=== PATIENT | female | born 1975 | race American Indian/Alaskan Native ===

== ENCOUNTER 2019-03-01 09:04 | Emergency (ER) | payer MEDICAID ==
[2019-03-01 09:57] LABS: Basophils % (Auto) 0.7 % (0.0-1.8); Eosinophils # (Auto) 0.1 K/mm3 (0.0-0.4); Eosinophils % (Auto) 1.6 % (0.0-4.3); Hematocrit 43.7 % (30.3-42.9); Lymphocytes # (Auto) 2.3 K/mm3 (1.2-5.4); Lymphocytes % (Auto) 35.4 % (13.4-35.0); Mean Corpuscular HGB Conc 34 % (30-34); Mean Corpuscular Volume 104 fl (79-97); Monocytes # (Auto) 0.5 K/mm3 (0.0-0.8); Monocytes % (Auto) 8.2 % (0.0-7.3); Platelet Count 193 K/mm3 (140-440); Red Blood Count 4.21 M/mm3 (3.65-5.03); Red Cell Distribution Width 14.9 % (13.2-15.2)
[2019-03-01 10:05] LABS: Bacteria,Urine 4+ /HPF (Negative); Bilirubin,Urine NEG (Negative); Blood,Urine NEG (Negative); Color,Urine Yellow (Yellow); Protein,Urine <15 mg/dL mg/dL (Negative); Urobilinogen,Urine < 2.0 mg/dL (<2.0)
[2019-03-01 10:17] LABS: Alanine Aminotransferase 42 units/L (7-56); Albumin 4.2 g/dL (3.9-5); BUN/Creatinine Ratio 4; Blood Urea Nitrogen 3 mg/dL (7-17); Calcium 9.3 mg/dL (8.4-10.2); Hemolysis Index 11
[2019-03-01 10:18] LABS: HCG Qualitative,Urine Negative (Negative)
[2019-03-01] MEDS ORDERED: DILAUDID IV ONE (10:19)
[2019-03-01] MEDS ORDERED: NACL 0.9% 500 ML 500 ML IV ONE (10:19)
[2019-03-01] MEDS ORDERED: ZOFRAN IV ONE (10:19)
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
[2019-03-01] MEDS ORDERED: MAGNESIUM SULFATE 2GM/50ML 2 GM/50 ML BAG IV ONE (11:07)
[2019-03-01] MEDS ORDERED: MORPHINE IV ONE (11:14)
--- NOTE | 2019-03-01 12:46 | Cat Scan Report ---
CT ABDOMEN PELVIS WITH CONTRAST: HISTORY: Abdominal pain and nausea, small bowel obstruction versus constipation. COMPARISON: none. TECHNIQUE: Helical CT in 1.25mm intervals following IV contrast. Sagittal and coronal reconstructions. FINDINGS: Lung bases: Normal heart size. A small to medium layering right pleural effusion is identified measuring 4 cm in thickness. Liver: There is moderate hepatomegaly with diffuse fatty infiltration. No focal liver mass or surface nodularity. Biliary system: Normal. Pancreas: Normal. Spleen: Borderline to mild splenomegaly measuring 13.5 cm. Kidneys/ureters/bladder: Normal. Adrenal glands: A 1 cm low density nodule is identified in the medial limb of the left adrenal gland. This probably represents a small adrenal adenoma. The right adrenal gland is normal. Aorta: Normal. Intestines: No evidence for bowel obstruction or focal inflammation. No constipation is appreciated. Appendix: Normal. Pelvic viscera: The uterus is unremarkable. Bilateral ovarian cysts are identified. There are 2 cysts in the right ovary measuring up to 2 cm. 2 cysts in the left ovary measure 4 cm and 2 cm. Ascites: None. Adenopathy: None. Musculoskeletal: Normal. IMPRESSION: Moderate hepatomegaly with fatty infiltration. Borderline splenomegaly. Mild to moderate right pleural effusion. Bilateral ovarian cysts as described. No evidence for bowel obstruction or constipation.
[2019-03-01] MEDS ORDERED: FLEET MINERAL OIL PR ONE (12:52)
[2019-03-01] MEDS ORDERED: TORADOL IV ONE (12:52)
--- NOTE | 2019-03-01 14:42 | Ultrasound Report ---
ULTRASOUND PELVIS DUPLEX DOPPLER COMPLETE ULTRASOUND TRANSVAGINAL HISTORY: Pelvic pain. COMPARISON: CT abdomen pelvis with contrast performed the same day. TECHNIQUE: Transabdominal and transvaginal ultrasound with color and spectral doppler interrogation. FINDINGS: Uterus: Anteverted. 6.4 x 2.6 x 4.0 cm. No evidence for uterine mass. Normal cervix. Endometrium: Normal. 5.0 mm in thickness. Right ovary: 2.8 x 2.5 x 1.4 cm. There are 2 simple cysts in the right adnexa measuring 1.0 cm and 1.5 cm. Left ovary: 3.8 x 2.4 x 2.7 cm. There are 3 cystic structures in the left adnexa measuring 1.0 cm, 1.6 cm and 2.1 cm. Trace free pelvic fluid is identified. Spectral Doppler waveforms demonstrate arterial flow to both ovaries. IMPRESSION: Bilateral ovarian cysts as described. Trace free pelvic fluid.
[2019-03-01 15:46] VITALS: BP 126/70
== END 2019-03-01 15:46 | disposition home or self-care (01) ==
LOC: ED 09:04
DX: R10.30 Lower abdominal pain, unspecified (principal); K62.89 Other specified diseases of anus and rectum; I11.0 Hypertensive heart disease with heart failure; I50.9 Heart failure, unspecified; E11.9 Type 2 diabetes mellitus without complications; J44.9 Chronic obstructive pulmonary disease, unspecified; F17.200 Nicotine dependence, unspecified, uncomplicated; Z79.4 Long term (current) use of insulin; Z79.899 Other long term (current) drug therapy
CPT/HCPCS: 36415; 74177; 76830; 80053; 81001; 81025; 82550; 83735; 85025; 87076; 87086; 87186; 93005; 93010; 93975; 96365; 96375; 99284; J1170; J1885; J2270; J2405; J3475; J7040; Q9967; 96361

== ENCOUNTER 2021-02-07 14:04 | Emergency (ER) | payer MEDICAID ==
[2021-02-07 14:28] LABS: Bilirubin,Urine NEG (Negative); Blood,Urine NEG (Negative); Color,Urine Yellow (Yellow); Protein,Urine <15 mg/dL mg/dL (Negative); RBC,Urine < 1.0 /HPF (0.0-6.0); Urobilinogen,Urine < 2.0 mg/dL (<2.0)
[2021-02-07 14:40] LABS: Amphetamine Screen,Urine Negative; Benzodiazepines Screen,Urine Negative; Cannabinoid Screen,Urine Negative; Cocaine Screen,Urine Negative; Methadone Screen,Urine Negative; Opiate Screen,Urine Negative
[2021-02-07] MEDS ORDERED: SODIUM CHLORIDE 0.9% 1000 ML 1,000 ML IV ONE (14:52)
--- NOTE | 2021-02-07 15:39 | XRay Report ---
CHEST 1 VIEW INDICATION: AMS. COMPARISON: 05/07/2017 FINDINGS: Support devices: None. Heart: Within normal limits. Lungs/Pleura: No acute air space or interstitial disease. Trace right pleural effusion is identified. No pneumothorax. Additional findings: None. IMPRESSION: Trace right pleural effusion. Signer Name: Immanuel Stringer Jr, MD Signed: 02/07/2021 3:34 PM Workstation Name: [id number]
--- NOTE | 2021-02-07 15:54 | Emergency Department Report ---
HPI - General Chief Complaint: Altered Mental Status Time Seen by Provider: 02/07/21 14:13 - HPI HPI: 45-year-old female brought in by EMS after her called 911 saying that she has altered mental status. According to the EMS report, the patient ap parently was discharged from [facility] yesterday after being admitted for alcohol withdrawal. Apparently her last drink was January 15. After going home at some point the patient apparently became confused to the point where her called 911. On initial assessment of the patient, she is noted to be in distress, crying hysterically. Her heart rate is in the 120s although she is very agitated. She has normal oxygen saturation and blood pressure. Upon further questioning she is oriented x3 but is unable to give details of the HPI, saying "I do not know what happened to me" over and over. She denies any recent alcohol or drug ingestion/consumption. Further details of the HPI are limited due to her clinical condition. ED Past Medical Hx - Past Medical History Previous Medical History?: Yes Hx Hypertension: Yes Hx Congestive Heart Failure: Yes Hx Diabetes: Yes Hx Seizures: Yes Hx Asthma: Yes Hx COPD: Yes - Surgical History Additional Surgical History: exlap - Social History Smoking Status: Unknown if ever smoked Substance Use Type: Alcohol - Medications Home Medications: Home Medications Medication Instructions Recorded Confirmed Last Taken Type Gabapentin 300 mg PO TID 05/07/17 03/01/19 Unknown History Valacyclovir HCl [Valtrex] 1 tab PO QDAY 05/07/17 03/01/19 Unknown History buPROPion XL [Wellbutrin XL] 150 mg PO QAM 05/07/17 03/01/19 Unknown History Budesonide [Pulmicort Respules] 0.5 mg IH Q12HRT #30 day 05/11/17 03/01/19 Unknown Rx ALBUTEROL NEB's [Proventil 0.083% 2.5 mg IH Q6H PRN 03/01/19 03/01/19 Unknown History NEBS] Acetaminophen [Non-Aspirin Extra 500 mg PO Q6HR PRN #30 tablet 03/01/19 Unknown Rx Strength] FLUoxetine HCL [PROzac] 40 mg PO QDAY 03/01/19 03/01/19 Unknown History FLUoxetine [PROzac] 20 mg PO QDAY 03/01/19 03/01/19 Unknown History Hydrocortisone [Anusol-Hc 2.5% TOP 30 gm RC QHS PRN #5 cream..g. 03/01/19 Unknown Rx CREAM] Ibuprofen [Motrin] 600 mg PO Q8H PRN #30 tablet 03/01/19 Unknown Rx Insulin Glargine,Hum.rec.anlog 30 units SUB-Q HS 03/01/19 03/01/19 Unknown History [Lantus Solostar] Magnesium Oxide [Magnesium] 400 mg PO BID #20 capsule 03/01/19 Unknown Rx Metformin HCl [metFORMIN] 1,000 mg PO BIDWM 03/01/19 03/01/19 Unknown History Nitrofurantoin Casey/M-Cryst 100 mg PO Q12HR #14 capsule 03/01/19 Unknown Rx [Macrobid CAP] Ondansetron [Zofran Odt] 4 mg PO Q8HR PRN #20 tab.rapdis 03/01/19 Unknown Rx Quetiapine Fumarate [SEROquel] 800 mg PO HS 03/01/19 03/01/19 Unknown History Travoprost [Travatan Z] 1 drop OU QPM 03/01/19 03/01/19 Unknown History Zinc/Xylo/Neosp/Vit A&D [Butt 50 applic TP BID PRN #1 jar 03/01/19 Unknown Rx Paste/Lidocaine] buPROPion SR [Wellbutrin Sr] 150 mg PO BID 03/01/19 03/01/19 Unknown History clonazePAM [KlonoPIN] 2 mg PO BID PRN 03/01/19 03/01/19 Unknown History traZODone [Desyrel] 1 - 2 tab PO QHS PRN 03/01/19 03/01/19 Unknown History ED Review of Systems ROS: Stated complaint: AMS Other details as noted in HPI Comment: Unobtainable due to pts medical conditions Physical Exam - Physical Exam Vital Signs: Vital Signs 02/07/21 14:31 Temperature 98.8 F Pulse Rate 114 H Respiratory 20 Rate Blood Pressure 138/76 [Right] O2 Sat by Pulse 98 Oximetry Physical Exam: GENERAL: Well developed. Well nourished. Crying hysterically. HEENT: Normocephalic. No obvious contusions, abrasions, lacerations, or other signs of trauma. Slightly dry mucous membranes EYES: Extraocular movements are intact. Pupils are equal round and reactive to light bilaterally NECK: Supple. Trachea is midline. LUNGS: Nonlabored breathing. Lungs are clear to auscultation bilaterally. There is equal chest rise bilaterally. HEART/CARDIOVASCULAR: Tachycardia. Normal rhythm. No murmurs or rubs. ABDOMEN: Abdomen is soft and nondistended. Normal bowel sounds. No significant tenderness, guarding or rebound. SKIN: Skin is warm and dry NEURO: Patient is awake, alert, and oriented. It is difficult to get her to cooperate with the exam, although she has no facial asymmetry. Her cranial nerves are intact. She is moving all 4 extremities with normal strength. She has normal sensation. Mild tremor of bilateral fingers. MUSCULOSKELETAL: Normal ROM throughout. There are no tenderness or deformity. ED Course Vital Signs 02/07/21 14:31 Temperature 98.8 F Pulse Rate 114 H Respiratory 20 Rate Blood Pressure 138/76 [Right] O2 Sat by Pulse 98 Oximetry ED Medical Decision Making - Lab Data Result diagrams: 02/07/21 15:28 02/07/21 15:28 Laboratory Results - last 24 hr 02/07/21 02/07/21 02/07/21 14:14 14:14 15:28 WBC 7.3 RBC 2.70 L Hgb 9.7 L Hct 29.0 L MCV 107 H MCH 36 H MCHC 34 RDW 18.1 H Plt Count 171 Lymph % (Auto) 8.5 L Casey % (Auto) 4.9 Eos % (Auto) 0.0 Baso % (Auto) 0.2 Lymph # (Auto) 0.6 L Casey # (Auto) 0.4 Eos # (Auto) 0.0 Baso # (Auto) 0.0 Seg Neutrophils % 86.4 H Seg Neutrophils # 6.3 Sodium Potassium Chloride Carbon Dioxide Anion Gap BUN Creatinine Estimated GFR BUN/Creatinine Ratio Glucose Calcium Magnesium Total Bilirubin Direct Bilirubin Indirect Bilirubin AST ALT Alkaline Phosphatase Ammonia Troponin T NT-Pro-B Natriuret Pep Total Protein Albumin Albumin/Globulin Ratio TSH HCG, Qual Urine Color Yellow Urine Turbidity Clear Urine pH 6.0 Ur Specific [place] 1.014 Urine Protein <15 mg/dl Urine Glucose (UA) Neg Urine Ketones Neg Urine Blood Neg Urine Nitrite Neg Urine Bilirubin Neg Urine Urobilinogen < 2.0 Ur Leukocyte Esterase Neg Urine WBC (Auto) 1.0 Urine RBC (Auto) < 1.0 Salicylates Urine Opiates Screen Negative Urine Methadone Screen Negative Acetaminophen Ur Barbiturates Screen Negative Ur Phencyclidine Scrn Negative Ur Amphetamines Screen Negative U Benzodiazepines Scrn Negative Urine Cocaine Screen Negative U Marijuana (THC) Screen Negative Drugs of Abuse Note Disclamer Plasma/Serum Alcohol 02/07/21 02/07/21 02/07/21 15:28 15:28 15:28 WBC RBC Hgb Hct MCV MCH MCHC RDW Plt Count Lymph % (Auto) Casey % (Auto) Eos % (Auto) Baso % (Auto) Lymph # (Auto) Casey # (Auto) Eos # (Auto) Baso # (Auto) Seg Neutrophils % Seg Neutrophils # Sodium 135 L Potassium 3.6 Chloride 95.9 L Carbon Dioxide 24 Anion Gap 19 BUN 18 H Creatinine 0.7 Estimated GFR > 60 BUN/Creatinine Ratio 26 Glucose 243 H Calcium 9.8 Magnesium 1.40 L Total Bilirubin 1.70 H Direct Bilirubin 1.0 H Indirect Bilirubin 0.7 AST 67 H ALT 82 H Alkaline Phosphatase 141 H Ammonia Troponin T < 0.010 NT-Pro-B Natriuret Pep 48.60 Total Protein 8.6 H Albumin 3.4 L Albumin/Globulin Ratio 0.7 TSH HCG, Qual Negative Urine Color Urine Turbidity Urine pH Ur Specific [place] Urine Protein Urine Glucose (UA) Urine Ketones Urine Blood Urine Nitrite Urine Bilirubin Urine Urobilinogen Ur Leukocyte Esterase Urine WBC (Auto) Urine RBC (Auto) Salicylates Urine Opiates Screen Urine Methadone Screen Acetaminophen Ur Barbiturates Screen Ur Phencyclidine Scrn Ur Amphetamines Screen U Benzodiazepines Scrn Urine Cocaine Screen U Marijuana (THC) Screen Drugs of Abuse Note Plasma/Serum Alcohol < 0.01 02/07/21 02/07/21 02/07/21 16:28 16:28 16:28 WBC RBC Hgb Hct MCV MCH MCHC RDW Plt Count Lymph % (Auto) Casey % (Auto) Eos % (Auto) Baso % (Auto) Lymph # (Auto) Casey # (Auto) Eos # (Auto) Baso # (Auto) Seg Neutrophils % Seg Neutrophils # Sodium Potassium Chloride Carbon Dioxide Anion Gap BUN Creatinine Estimated GFR BUN/Creatinine Ratio Glucose Calcium Magnesium Total Bilirubin Direct Bilirubin Indirect Bilirubin AST ALT Alkaline Phosphatase Ammonia Troponin T NT-Pro-B Natriuret Pep Total Protein Albumin Albumin/Globulin Ratio TSH 2.990 HCG, Qual Urine Color Urine Turbidity Urine pH Ur Specific [place] Urine Protein Urine Glucose (UA) Urine Ketones Urine Blood Urine Nitrite Urine Bilirubin Urine Urobilinogen Ur Leukocyte Esterase Urine WBC (Auto) Urine RBC (Auto) Salicylates < 0.3 L Urine Opiates Screen Urine Methadone Screen Acetaminophen 5.0 L Ur Barbiturates Screen Ur Phencyclidine Scrn Ur Amphetamines Screen U Benzodiazepines Scrn Urine Cocaine Screen U Marijuana (THC) Screen Drugs of Abuse Note Plasma/Serum Alcohol 02/07/21 18:20 WBC RBC Hgb Hct MCV MCH MCHC RDW Plt Count Lymph % (Auto) Casey % (Auto) Eos % (Auto) Baso % (Auto) Lymph # (Auto) Casey # (Auto) Eos # (Auto) Baso # (Auto) Seg Neutrophils % Seg Neutrophils # Sodium Potassium Chloride Carbon Dioxide Anion Gap BUN Creatinine Estimated GFR BUN/Creatinine Ratio Glucose Calcium Magnesium Total Bilirubin Direct Bilirubin Indirect Bilirubin AST ALT Alkaline Phosphatase Ammonia 63.0 H Troponin T NT-Pro-B Natriuret Pep Total Protein Albumin Albumin/Globulin Ratio TSH HCG, Qual Urine Color Urine Turbidity Urine pH Ur Specific [place] Urine Protein Urine Glucose (UA) Urine Ketones Urine Blood Urine Nitrite Urine Bilirubin Urine Urobilinogen Ur Leukocyte Esterase Urine WBC (Auto) Urine RBC (Auto) Salicylates Urine Opiates Screen Urine Methadone Screen Acetaminophen Ur Barbiturates Screen Ur Phencyclidine Scrn Ur Amphetamines Screen U Benzodiazepines Scrn Urine Cocaine Screen U Marijuana (THC) Screen Drugs of Abuse Note Plasma/Serum Alcohol - EKG Data -: EKG Interpreted by Nv - EKG Data 02/07/21 16:55 Sinus arrhythmia. Normal axis normal intervals. No ectopy. No significant ST segment or T wave abnormalities. - Radiology Data CHEST 1 VIEW INDICATION: AMS. COMPARISON: 05/07/2017 FINDINGS: Support devices: None. Heart: Within normal limits. Lungs/Pleura: No acute air space or interstitial disease. Trace right pleural effusion is identified. No pneumothorax. Additional findings: None. IMPRESSION: Trace right pleural effusion. Signer Name: Immanuel Stringer Jr, MD Signed: 02/07/2021 2:34 PM Workstation Name: [id number] - Medical Decision Making 45-year-old female brought in by EMS after her called 911 saying that she has altered mental status. The patient was apparently discharged from [facility] yesterday where she was admitted for alcohol withdrawal. Her last drink was apparently January 15. The patient denies any recent alcohol consumption. On initial assessment, she is in distress crying hysterically. It is very difficult to get her to answer questions although she is alert and oriented x3. While I am in the room, the patient's heart rate is in the 120s. She is satting 96 to 100% on room air. She has normal blood pressure. She has slightly dry mucous membranes and has very mildly tremulous fingers. Although it is difficult to get her to cooperate with the exam, she is moving all 4 extremities with normal strength. She is unable to communicate details of her medical history or history of her current presentation today saying only that "I do not know what happened to me" while crying. When I was not in the room when I observed the patient on the monitor she was seen to be resting comfortably in the bed with heart rate in the 90s. I attempted to call the patient's to get further details but was unsuccessful. I will therefore perform work-up with broad set of labs, EKG, chest x-ray. We will give 1 L of IV fluids and co ntinue to observe her while we try to contact her to get further details. On repeat assessment at 4:45 PM, the patient's resting comfortably in the bed. When I asked her how she is feeling she nods her head and says okay. When I asked her if she has any complaints she stares at me but does not answer. Labs have returned and reveal no significant leukocytosis. She has mild anemia with a hemoglobin of 9.7. Slightly elevated BUN at 18 making be consistent with dehydration. She does have mild transaminitis and mildly elevated Alk Phos. However, she has no abdominal tenderness on exam. She does have elevated glucose of 247. Given that we are running IV fluids I will order insulin at this time but she will get frequent Accu-Cheks. Chest x-ray reveals only trace right pleural effusion. Given that these findings would not explain the patient's clinical presentation and behavior as well as the fact that the behavior is better explained by some type of psychiatric illness, I will add Tylenol and salicylate level as well as a TSH and coronavirus PCR and have her evaluated by mental health. At 6 PM, the patient's arrived with her discharge packet from [facility]. He also provides further history and states that after taking her medications this morning the patient became crazed and hysterical. After reviewing the patient's discharge paperwork it appears that she has a diagnosis of schizoaffective disorder as well as alcoholic cirrhosis with hepatic encephalopathy. At this time the patient is in the room and is completely calm. Her vitals have stabilized. Her medical clearance labs are normal however I will add on an ammonia level. Given that she is now calm and at her baseline according to her , I will await mental health assessment recommendations. Ammonia is only mildly elevated at 63, consistent with her known diagnosis of hepatic encephalopathy. The mental health head of digital does not feel that she requires any further inpatient treatment from a psychiatric perspective. Given that she is at her baseline and her feels comfortable taking her home she will be discharged with psychiatric resources. Critical care attestation.: If time is entered above; I have spent that time in minutes in the direct care of this critically ill patient, excluding procedure time. ED Disposition Clinical Impression: Schizo affective schizophrenia, Hepatic encephalopathy, Hyperglycemia Disposition: DC-01 TO HOME OR SELFCARE Is pt being admited?: No Condition: Stable Instructions: Hepatic Encephalopathy, Liver Failure, Hyperglycemia, Hyperglycemia, [id number], Supporting Someone With Schizoaffective Disorder, Managing Schizoaffective Disorder Additional Instructions: Please follow-up with your medical doctors as advised in your discharge paperwork from [facility]. In addition below you will find the following community resources. Professional and Agency Contacts To help Resolve Crises(31/03) [place] Crisis Line: Suicide Prevention Line: Crisis Text Line: Text START to 365678 Emergency: 911 Outpatient COMMUNITY Behavioral Health Resources: [place]: [facility] [address] [place], [place] [address] [place]: [facility] - [facility] [address] [place] [address] [place]: [facility] - [address] [place] [address] Friday thru Friday - 8am - 5pm RAÚL: [facility] Address: [address], [place] [address] [facility] Address: [address], [place] [address] Friday thru Friday- 7am-2pm [facility] Address: [address], [place] [address] Friday thru Friday: 8:30AM-5PM OUTPATIENT MENTAL HEALTH RESOURCES [facility], [address] [place] [address] [facility] Norberto Donnelly MD: [address] [facility] [address] [place], [place] [id number] [facility]: [address] [place], [place] [id number] [place] [address] [phone] [facility]: [address] [facility] [address] [place], [place] [id number] [facility]: [address] [facility] [address] [facility] [id number] [facility]: [address] [place] [address] Kirill Balderas MD: [address] [facility] [id number] [facility]: [address] [place], [place] [id number] [phone] [facility] CRISIS AND ACCESS LINE: * Referrals: PRIMARY CAREMD [Primary Care Provider] - 3-5 Days
[2021-02-07 16:05] LABS: Basophils % (Auto) 0.2 % (0.0-1.8); Hemoglobin 9.7 gm/dl (10.1-14.3); Lymphocytes # (Auto) 0.6 K/mm3 (1.2-5.4); Lymphocytes % (Auto) 8.5 % (13.4-35.0); Mean Corpuscular HGB Conc 34 % (30-34); Mean Corpuscular Volume 107 fl (79-97); Monocytes # (Auto) 0.4 K/mm3 (0.0-0.8); Monocytes % (Auto) 4.9 % (0.0-7.3); Platelet Count 171 K/mm3 (140-440); Red Cell Distribution Width 18.1 % (13.2-15.2)
[2021-02-07 16:29] LABS: Alanine Aminotransferase 82 units/L (7-56); Albumin 3.4 g/dL (3.9-5); Blood Urea Nitrogen 18 mg/dL (7-17); Calcium 9.8 mg/dL (8.4-10.2); Hemolysis Index 2
[2021-02-07 16:32] LABS: BUN/Creatinine Ratio 26
[2021-02-07 20:14] VITALS: BP 143/84
--- NOTE | 2021-02-09 09:56 | Electrocardiograph Report ---
[facility] Test Date: 2021-02-07 Test Time: 16:35:35 Pat Name: BERENICE GALLEGOS Department: Room: Gender: F Service Order Taker: SEBASTIÁN : 1975 Requested By: ZEUS LIMON Order Number: [id number] Reading MD: Gabriel Whitaker Measurements Intervals [place] Rate: 77 P: 62 AK: 122 QRS: 60 QRSD: 86 T: 37 QT: 368 QTc: 409 Interpretive Statements Sinus rhythm Atrial premature complex No previous ECG available for comparison Electronically Signed On 02-09-2021 9:56:26 EDT by Gabriel Whitaker
== END 2021-02-07 20:02 | disposition home or self-care (01) ==
LOC: ED 14:04
DX: K72.90 Hepatic failure, unspecified without coma (principal); F25.9 Schizoaffective disorder, unspecified; E11.65 Type 2 diabetes mellitus with hyperglycemia; I11.0 Hypertensive heart disease with heart failure; I50.9 Heart failure, unspecified; R56.9 Unspecified convulsions; J44.9 Chronic obstructive pulmonary disease, unspecified; Z98.890 Other specified postprocedural states; Z79.4 Long term (current) use of insulin; Z79.899 Other long term (current) drug therapy
CPT/HCPCS: 36415; 71045; 80048; 80076; 80307; 80320; 81001; 82140; 83735; 83880; 84443; 84484; 84703; 85025; 93005; 96360; G0480

== ENCOUNTER 2022-04-09 18:43 | Emergency (ER) | payer MEDICAID ==
--- NOTE | 2022-04-09 20:25 | Emergency Department Report ---
ED General Adult HPI - General Chief complaint: Psych Stated complaint: PSYCH EVAL PUI?: No Time Seen by Provider: 04/09/22 19:52 Source: EMS Mode of arrival: Ambulatory Limitations: No Limitations - History of Present Illness -: unknown Radiation: non-radiation Severity scale (0 -10): 0 Worsens with: none Associated Symptoms: denies: denies other symptoms, confusion, chest pain, cough Treatments Prior to Arrival: none - Related Data Home Medications Medication Instructions Recorded Confirmed Last Taken Gabapentin 300 mg PO TID 05/07/17 03/01/19 Unknown Valacyclovir HCl [Valtrex] 1 tab PO QDAY 05/07/17 03/01/19 Unknown buPROPion XL [Wellbutrin XL] 150 mg PO QAM 05/07/17 03/01/19 Unknown ALBUTEROL NEB's [Proventil 0.083% 2.5 mg IH Q6H PRN 03/01/19 03/01/19 Unknown NEBS] FLUoxetine HCL [PROzac] 40 mg PO QDAY 03/01/19 03/01/19 Unknown FLUoxetine [PROzac] 20 mg PO QDAY 03/01/19 03/01/19 Unknown Insulin Glargine,Hum.rec.anlog 30 units SUB-Q HS 03/01/19 03/01/19 Unknown [Lantus Solostar] Metformin HCl [metFORMIN] 1,000 mg PO BIDWM 03/01/19 03/01/19 Unknown Quetiapine Fumarate [SEROquel] 800 mg PO HS 03/01/19 03/01/19 Unknown Travoprost [Travatan Z] 1 drop OU QPM 03/01/19 03/01/19 Unknown buPROPion SR [Wellbutrin Sr] 150 mg PO BID 03/01/19 03/01/19 Unknown clonazePAM [KlonoPIN] 2 mg PO BID PRN 03/01/19 03/01/19 Unknown traZODone [Desyrel] 1 - 2 tab PO QHS PRN 03/01/19 03/01/19 Unknown Previous Rx's Medication Instructions Recorded Last Taken Type Budesonide [Pulmicort Respules] 0.5 mg IH Q12HRT #30 day 05/11/17 Unknown Rx Acetaminophen [Non-Aspirin Extra 500 mg PO Q6HR PRN #30 tablet 03/01/19 Unknown Rx Strength] Hydrocortisone [Anusol-Hc 2.5% TOP 30 gm RC QHS PRN #5 cream..g. 03/01/19 Unknown Rx CREAM] Ibuprofen [Motrin] 600 mg PO Q8H PRN #30 tablet 03/01/19 Unknown Rx Magnesium Oxide [Magnesium] 400 mg PO BID #20 capsule 03/01/19 Unknown Rx Nitrofurantoin Isabella/M-Cryst 100 mg PO Q12HR #14 capsule 03/01/19 Unknown Rx [Macrobid CAP] Ondansetron [Zofran Odt] 4 mg PO Q8HR PRN #20 tab.rapdis 03/01/19 Unknown Rx Zinc/Xylo/Neosp/Vit A&D [Butt 50 applic TP BID PRN #1 jar 03/01/19 Unknown Rx Paste/Lidocaine] Allergies Allergy/AdvReac Type Severity Reaction Status Date / Time No Known Allergies Allergy Verified 03/01/19 09:11 ED Review of Systems ROS: Stated complaint: PSYCH EVAL Other details as noted in HPI Constitutional: denies: chills, fever Eyes: denies: eye pain, eye discharge, vision change ENT: denies: ear pain, throat pain Respiratory: denies: cough, shortness of breath, wheezing Cardiovascular: denies: chest pain, palpitations Endocrine: no symptoms reported Gastrointestinal: denies: abdominal pain, nausea, diarrhea Genitourinary: denies: urgency, dysuria, discharge Musculoskeletal: denies: back pain, joint swelling, arthralgia Skin: denies: rash, lesions Neurological: denies: headache, weakness, paresthesias Psychiatric: denies: anxiety, depression Hematological/Lymphatic: denies: easy bleeding, easy bruising ED Past Medical Hx - Past Medical History Previous Medical History?: Yes Hx Hypertension: Yes Hx Congestive Heart Failure: Yes Hx Diabetes: Yes Hx Seizures: Yes Hx Psychiatric Treatment: Yes Hx Asthma: Yes Hx COPD: Yes - Surgical History Additional Surgical History: exlap - Social History Smoking Status: Unknown if ever smoked Substance Use Type: Alcohol - Medications Home Medications: Home Medications Medication Instructions Recorded Confirmed Last Taken Type Gabapentin 300 mg PO TID 05/07/17 03/01/19 Unknown History Valacyclovir HCl [Valtrex] 1 tab PO QDAY 05/07/17 03/01/19 Unknown History buPROPion XL [Wellbutrin XL] 150 mg PO QAM 05/07/17 03/01/19 Unknown History Budesonide [Pulmicort Respules] 0.5 mg IH Q12HRT #30 day 05/11/17 03/01/19 Unknown Rx ALBUTEROL NEB's [Proventil 0.083% 2.5 mg IH Q6H PRN 03/01/19 03/01/19 Unknown History NEBS] Acetaminophen [Non-Aspirin Extra 500 mg PO Q6HR PRN #30 tablet 03/01/19 Unknown Rx Strength] FLUoxetine HCL [PROzac] 40 mg PO QDAY 03/01/19 03/01/19 Unknown History FLUoxetine [PROzac] 20 mg PO QDAY 03/01/19 03/01/19 Unknown History Hydrocortisone [Anusol-Hc 2.5% TOP 30 gm RC QHS PRN #5 cream..g. 03/01/19 Unknown Rx CREAM] Ibuprofen [Motrin] 600 mg PO Q8H PRN #30 tablet 03/01/19 Unknown Rx Insulin Glargine,Hum.rec.anlog 30 units SUB-Q HS 03/01/19 03/01/19 Unknown History [Lantus Solostar] Magnesium Oxide [Magnesium] 400 mg PO BID #20 capsule 03/01/19 Unknown Rx Metformin HCl [metFORMIN] 1,000 mg PO BIDWM 03/01/19 03/01/19 Unknown History Nitrofurantoin Isabella/M-Cryst 100 mg PO Q12HR #14 capsule 03/01/19 Unknown Rx [Macrobid CAP] Ondansetron [Zofran Odt] 4 mg PO Q8HR PRN #20 tab.rapdis 03/01/19 Unknown Rx Quetiapine Fumarate [SEROquel] 800 mg PO HS 03/01/19 03/01/19 Unknown History Travoprost [Travatan Z] 1 drop OU QPM 03/01/19 03/01/19 Unknown History Zinc/Xylo/Neosp/Vit A&D [Butt 50 applic TP BID PRN #1 jar 03/01/19 Unknown Rx Paste/Lidocaine] buPROPion SR [Wellbutrin Sr] 150 mg PO BID 03/01/19 03/01/19 Unknown History clonazePAM [KlonoPIN] 2 mg PO BID PRN 03/01/19 03/01/19 Unknown History traZODone [Desyrel] 1 - 2 tab PO QHS PRN 03/01/19 03/01/19 Unknown History ED Physical Exam - General Limitations: No Limitations General appearance: alert, anxious - Head Head exam: Present: atraumatic, normocephalic - Eye Eye exam: Present: normal appearance - ENT ENT exam: Present: mucous membranes moist - Neck Neck exam: Present: normal inspection - Respiratory Respiratory exam: Present: normal lung sounds bilaterally. Absent: respiratory distress - Cardiovascular Cardiovascular Exam: Present: regular rate, normal rhythm. Absent: systolic murmur, diastolic murmur, rubs, gallop - GI/Abdominal GI/Abdominal exam: Present: soft, normal bowel sounds - Extremities Exam Extremities exam: Present: normal inspection - Back Exam Back exam: Present: normal inspection - Neurological Exam Neurological exam: Present: alert, oriented X3 - Psychiatric Psychiatric exam: Present: depressed, anxious - Skin Skin exam: Present: warm, dry, intact, normal color. Absent: rash ED Course Vital Signs 04/09/22 04/09/22 04/10/22 18:54 20:09 03:26 Temperature 98.5 F 98.7 F 99.3 F Pulse Rate 98 H 72 81 Respiratory 16 18 16 Rate Blood Pressure 110/92 113/81 100/58 [Left] O2 Sat by Pulse 98 98 97 Oximetry ED Medical Decision Making - Lab Data Result diagrams: 04/09/22 20:01 04/09/22 20:01 Critical care attestation.: If time is entered above; I have spent that time in minutes in the direct care of this critically ill patient, excluding procedure time. ED Disposition Clinical Impression: Suicidal ideation Disposition: 30 STILL A PATIENT Is pt being admited?: No Does the pt Need Aspirin: No Condition: Stable Referrals: AYDE MORROW MD [Primary Care Provider] - 3-5 Days
[2022-04-09 20:41] LABS: Basophils % (Auto) 1.1 % (0.0-1.8); Eosinophils # (Auto) 0.1 K/mm3 (0.0-0.4); Eosinophils % (Auto) 2.1 % (0.0-4.3); Hematocrit 37.1 % (30.3-42.9); Hemoglobin 12.6 gm/dl (10.1-14.3); Lymphocytes # (Auto) 1.7 K/mm3 (1.2-5.4); Lymphocytes % (Auto) 40.1 % (13.4-35.0); Mean Corpuscular HGB Conc 34 % (30-34); Mean Corpuscular Volume 97 fl (79-97); Monocytes # (Auto) 0.4 K/mm3 (0.0-0.8); Platelet Count 118 K/mm3 (140-440); Red Blood Count 3.84 M/mm3 (3.65-5.03); Red Cell Distribution Width 15.3 % (13.2-15.2)
[2022-04-09 20:47] LABS: BUN/Creatinine Ratio 10; Blood Urea Nitrogen 10 mg/dL (7-17); Calcium 9.1 mg/dL (8.4-10.2); Hemolysis Index 6
[2022-04-09 21:18] LABS: Bacteria,Urine 4+ /HPF (Negative); Mucus,Urine FEW /HPF
[2022-04-09 21:49] LABS: Bilirubin,Urine Negative (Negative); Blood,Urine Negative (Negative); Color,Urine Yellow (Yellow); Protein,Urine <15 mg/dL mg/dL (Negative); Urobilinogen,Urine < 2.0 mg/dL (<2.0)
[2022-04-10] MEDS ORDERED: POTASSIUM CHLORIDE ER 20 MEQ TAB PO NR (07:23)
[2022-04-10] MEDS ORDERED: cephALEXin 500 MG CAP PO ONE (10:00)
[2022-04-10] MEDS ORDERED: POTASSIUM CHLORIDE ER 20 MEQ TAB PO ONE (11:54)
[2022-04-10 16:08] VITALS: BP 108/64
== END 2022-04-10 15:00 | disposition still patient (30) ==
LOC: ED 18:43
DX: R45.851 Suicidal ideations (principal); Z20.822 Contact with and (suspected) exposure to COVID-19; F10.20 Alcohol dependence, uncomplicated; I10 Essential (primary) hypertension; E11.9 Type 2 diabetes mellitus without complications; J45.909 Unspecified asthma, uncomplicated
CPT/HCPCS: 36415; 80048; 81001; 85025; 87076; 87086; 87186; 99285; U0003; 80320; G0480